=== PATIENT | female | born 1980 | race Caucasian/White ===

== ENCOUNTER 2017-07-06 18:56 | Observation (INO) | payer BC, OTHER ==
[~2017-07-06] VITALS: Ht 160 cm; Wt 53.5 kg
[~2017-07-06 18:56] MED LIST: CEPH250C37 PO; LEVO500T83 PO; METH20TA33 PO; METHY10 PO; NITR-105 PO; SULF-198 PO; [UNRECOGNIZED DRUG - OTHER]
--- NOTE | 2017-07-06 19:00 | ER Report ---
History and Physical Time Seen By MD: 19:32 HPI/ROS CHIEF COMPLAINT: Left lower quadrant pain HISTORY OF PRESENT ILLNESS: 36-year-old female, G2, P1 presents ambulatory to the ER complaining of left lower quadrant abdominal pain since 5 PM this evening. She thinks she may have an ectopic . She has an IUD. She did 2 home tests that were positive. She has intermittent spotting with her IUD. She thinks that she is approximate 5 weeks and since her last menstrual period. She notes that she denied some urinary tract symptoms since 5 days ago. She notes no fever or chills. She states that he has recurrent urinary tract infections and has no symptoms on previous occasions. She notes some mild nausea but no vomiting or diarrhea. She notes no vaginal discharge or bleeding at this time. REVIEW OF SYSTEMS: Respiratory: No cough, no dyspnea. Cardiovascular: No chest pain, no palpitations. Gastrointestinal: As above Musculoskeletal: No back pain. Allergies: Coded Allergies: celecoxib (Verified Allergy, Mild, HIVES, 07/06/17) Home Meds Reported Medications Amphet Asp/Amphet/D-Amphet (ADDERALL 10 MG TABLET) 10 Mg Tablet, 10 MG PO DAILY 07/06/17 Amphet Asp/Amphet/D-Amphet (ADDERALL 20 MG TABLET) 20 Mg Tablet, 25 MG PO DAILY 07/06/17 Discontinued Reported Medications [paraguard] No Conflict Check 11/11/14 Methylphenidate Hcl (RITALIN) 10 Mg Tab, 10 MG PO QNOON, TAB 11/09/14 Methylphenidate Hcl (RITALIN) 20 Mg Tablet, 20 MG PO QAM 11/09/14 Discontinued Scripts Levofloxacin 500 Mg Tab (LEVOFLOXACIN 500 MG TAB) 500 Mg Tablet, 1 TAB PO QDAY, #3 TAB 0 Refills Prov:GISELLE HOLBROOK MD 11/28/14 Past Medical/Surgical History Patient has a past medical history of exercise-induced asthma, GERD, . Patient has a surgical history of dental surgery, MRSA abscess excision. Reviewed Nurses Notes: Yes Old Medical Records Reviewed: Yes Hx Smoking: No Smoking Status: Former Smoker Exposure to Second Hand Smoke?: No Hx Substance Use Disorder: No Hx Alcohol Use: No Constitutional Vital Sign - Last 24 Hours 07/06/17 07/06/17 07/06/17 07/06/17 19:28 19:30 19:31 19:45 Temp 98.1 Pulse 84 82 86 Resp 16 B/P (MAP) 150/102 (118) 150/102 Pulse Ox 100 99 99 O2 Delivery Room Air 07/06/17 07/06/17 07/06/17 07/06/17 20:00 20:15 20:30 20:45 Pulse 86 80 78 80 B/P (MAP) 116/98 (104) 131/95 (107) Pulse Ox 93 100 99 99 Physical Exam General Appearance: The patient is alert, has no immediate need for airway protection and no current signs of toxicity. Vital signs stable, afebrile, mild distress HEENT: Pupils equal and round no injection. Oropharynx without redness or exudate, mucous membranes are moist Respiratory: Chest is non tender, lungs are clear to auscultation. Cardiac: regular rate and rhythm Gastrointestinal: [Abdomen is soft. Mild left lower quadrant tenderness, no rebound or guarding no masses, bowel sounds normal.] Musculoskeletal: Neck: Neck is supple and non tender. No lymphadenopathy Extremities have full range of motion and are non tender. Skin: No rashes or lesions. DIFFERENTIAL DIAGNOSIS: After history and physical exam differential diagnosis was considered for vaginal bleeding including but not limited to ectopic , menses, miscarriage, and dysfunctional uterine bleeding. Medical Decision Making Data Points Result Diagram: 07/06/17193307/06/171933 Laboratory Hematology Test 07/06/17 19:25 07/06/17 19:34 Urine Color Straw Urine Clarity Clear Urine pH 6.0 pH (4.8-9.5) Urine Specific [place] 1.004 Urine Protein Negative mg/dL (NEGATIVE) Urine Glucose (UA) Negative mg/dL (NEGATIVE) Urine Ketones Negative mg/dL (NEGATIVE) Urine Blood Small (NEGATIVE) Urine Nitrite Negative (NEGATIVE) Urine Bilirubin Negative (NEGATIVE) Urine Urobilinogen Negative mg/dL (0.2-1.9) Urine Leukocyte Esterase Negative (NEGATIVE) Urine RBC None /HPF (0-2/HPF) Urine WBC 1 /HPF (0-5/HPF) Urine Squamous Epithelial Cells Few /LPF (</=FEW) Urine Bacteria Negative /HPF (NONE-FEW) Urine Mucus None /HPF (NONE-FEW) Red Blood Count 5.10 M/uL (4.17-5.56) Mean Corpuscular Volume 87.3 fL (80.0-96.0) Mean Corpuscular Hemoglobin 29.5 pg (26.0-33.0) Mean Corpuscular Hemoglobin Concent 33.8 g/dL (32.0-36.0) Red Cell Distribution Width 13.2 % (11.5-14.5) Mean Platelet Volume 6.8 fL (7.2-11.1) Neutrophils (%) (Auto) 65.3 % (39.4-72.5) Lymphocytes (%) (Auto) 27.9 % (17.6-49.6) Monocytes (%) (Auto) 5.8 % (4.1-12.4) Eosinophils (%) (Auto) 0.3 % (0.4-6.7) Basophils (%) (Auto) 0.7 % (0.3-1.4) Nucleated RBC Relative Count (auto) 0.1 /100WBC Neutrophils # (Auto) 5.0 K/uL (2.0-7.4) Lymphocytes # (Auto) 2.1 K/uL (1.3-3.6) Monocytes # (Auto) 0.4 K/uL (0.3-1.0) Eosinophils # (Auto) 0.0 K/uL (0.0-0.5) Basophils # (Auto) 0.1 K/uL (0.0-0.1) Nucleated RBC Absolute Count (auto) 0.01 K/uL Prothrombin Time 13.3 seconds (12.0-14.4) Prothromb Time International Ratio 1.01 Activated Partial Thromboplast Time 26 seconds (23-35) Sodium Level 137 mmol/L (137-145) Potassium Level 3.2 mmol/L (3.5-5.0) Chloride Level 99 mmol/L (98-107) Carbon Dioxide Level 25 mmol/L (22-31) Blood Urea Nitrogen 7 mg/dl (7-18) Creatinine 0.60 mg/dl (0.52-1.04) Glomerular Filtration Rate Calc > 60.0 Random Glucose 70 mg/dl (75-110) Calcium Level 9.1 mg/dl (8.4-10.2) Total Bilirubin 0.6 mg/dl (0.2-1.3) Aspartate Amino Transf (AST/SGOT) 25 U/L (0-35) Alanine Aminotransferase (ALT/SGPT) 36 U/L (0-56) Alkaline Phosphatase 46 U/L (0-126) Total Protein 8.6 gm/dl (6.3-8.2) Albumin 4.8 g/dl (3.5-5.0) Human Chorionic Gonadotropin, Qual Positive (NEGATIVE) Human Chorionic Gonadotropin, Quant 1508 mIU/ml Chemistry Test 07/06/17 19:25 07/06/17 19:34 Urine Color Straw Urine Clarity Clear Urine pH 6.0 pH (4.8-9.5) Urine Specific [place] 1.004 Urine Protein Negative mg/dL (NEGATIVE) Urine Glucose (UA) Negative mg/dL (NEGATIVE) Urine Ketones Negative mg/dL (NEGATIVE) Urine Blood Small (NEGATIVE) Urine Nitrite Negative (NEGATIVE) Urine Bilirubin Negative (NEGATIVE) Urine Urobilinogen Negative mg/dL (0.2-1.9) Urine Leukocyte Esterase Negative (NEGATIVE) Urine RBC None /HPF (0-2/HPF) Urine WBC 1 /HPF (0-5/HPF) Urine Squamous Epithelial Cells Few /LPF (</=FEW) Urine Bacteria Negative /HPF (NONE-FEW) Urine Mucus None /HPF (NONE-FEW) White Blood Count 7.7 k/uL (4.5-11.0) Red Blood Count 5.10 M/uL (4.17-5.56) Hemoglobin 15.0 g/dL (12.0-16.0) Hematocrit 44.5 % (34.0-47.0) Mean Corpuscular Volume 87.3 fL (80.0-96.0) Mean Corpuscular Hemoglobin 29.5 pg (26.0-33.0) Mean Corpuscular Hemoglobin Concent 33.8 g/dL (32.0-36.0) Red Cell Distribution Width 13.2 % (11.5-14.5) Platelet Count 354 K/uL (150-450) Mean Platelet Volume 6.8 fL (7.2-11.1) Neutrophils (%) (Auto) 65.3 % (39.4-72.5) Lymphocytes (%) (Auto) 27.9 % (17.6-49.6) Monocytes (%) (Auto) 5.8 % (4.1-12.4) Eosinophils (%) (Auto) 0.3 % (0.4-6.7) Basophils (%) (Auto) 0.7 % (0.3-1.4) Nucleated RBC Relative Count (auto) 0.1 /100WBC Neutrophils # (Auto) 5.0 K/uL (2.0-7.4) Lymphocytes # (Auto) 2.1 K/uL (1.3-3.6) Monocytes # (Auto) 0.4 K/uL (0.3-1.0) Eosinophils # (Auto) 0.0 K/uL (0.0-0.5) Basophils # (Auto) 0.1 K/uL (0.0-0.1) Nucleated RBC Absolute Count (auto) 0.01 K/uL Prothrombin Time 13.3 seconds (12.0-14.4) Prothromb Time International Ratio 1.01 Activated Partial Thromboplast Time 26 seconds (23-35) Glomerular Filtration Rate Calc > 60.0 Calcium Level 9.1 mg/dl (8.4-10.2) Total Bilirubin 0.6 mg/dl (0.2-1.3) Aspartate Amino Transf (AST/SGOT) 25 U/L (0-35) Alanine Aminotransferase (ALT/SGPT) 36 U/L (0-56) Alkaline Phosphatase 46 U/L (0-126) Total Protein 8.6 gm/dl (6.3-8.2) Albumin 4.8 g/dl (3.5-5.0) Human Chorionic Gonadotropin, Qual Positive (NEGATIVE) Human Chorionic Gonadotropin, Quant 1508 mIU/ml Coagulation Test 07/06/17 19:34 Prothrombin Time 13.3 seconds Prothromb Time International Ratio 1.01 Activated Partial Thromboplast Time 26 seconds Urinalysis Test 07/06/17 19:25 Urine Color Straw Urine Clarity Clear Urine pH 6.0 pH (4.8-9.5) Urine Specific [place] 1.004 Urine Protein Negative mg/dL (NEGATIVE) Urine Glucose (UA) Negative mg/dL (NEGATIVE) Urine Ketones Negative mg/dL (NEGATIVE) Urine Blood Small (NEGATIVE) Urine Nitrite Negative (NEGATIVE) Urine Bilirubin Negative (NEGATIVE) Urine Urobilinogen Negative mg/dL (0.2-1.9) Urine Leukocyte Esterase Negative (NEGATIVE) Urine RBC None /HPF (0-2/HPF) Urine WBC 1 /HPF (0-5/HPF) Urine Squamous Epithelial Cells Few /LPF (</=FEW) Urine Bacteria Negative /HPF (NONE-FEW) Urine Mucus None /HPF (NONE-FEW) EKG/Imaging Imaging Results: Ultrasound of the transvaginal OB ultrasound was obtained. The results of the study are Examination: 1st trimester obstetric ultrasound Comparison: None Available History: Vaginal bleeding. Left pelvic pain. LMP: 05/29/2017 Gestational age based on LMP: 5 weeks 3 days DEANGELO based on LMP: 03/05/2018 Findings: Standard endovaginal obstetric ultrasound with color flow and spectral analysis. Uterus: Intrauterine device in the lower uterine segment and cervix. Homogeneously thickened 2.7 cm endometrium with no intrauterine gestational sac or fluid collection identified.. Left adnexa: 2.9 x 1.8 x 2.1 cm morphologically normal ovary. 2.9 x 1.1 x 1.7 cm complex collection adjacent to the left ovary with a 9 x 3 x 3 mm fluid collection centrally. On Doppler interrogation there is surrounding increased vascularity. Right adnexa: 3.0 x 2.3 x 2.9 cm morphologically normal right ovary. Normal waveforms on Doppler interrogation. Small amount of fluid in the dependent pelvis containing a small amount of debris. Urinary bladder is unremarkable. IMPRESSION: 1. Left adnexa 2.9 x 1.1 x 1.7 cm complex collection adjacent to the left ovary is suspicious for an ectopic . BIOMEDICAL MANAGER consultation is required. 2. Small volume of pelvic fluid containing a small amount of debris could potentially be hemorrhage. 3. No intrauterine gestational sac. 4. Intrauterine device within the lower uterine segment and cervix. The study was read by the radiologist. I viewed the images myself on the PACS system. ED Course/Re-evaluation Clinical Indication for ER IV: IV Access ED Course Patient was admitted to an examination room. H&P was done. The differential diagnoses was considered. On clinical examination. Patient has sudden onset of left lower quadrant pain. At 5 PM. She was concerned she might have an ectopic . She actually did 2 home tests that were both positive. Patient has a peripheral IV established on arrival. Her vital signs are stable. Serum test is positive. Quantitative returns at 1500. Transvaginal ultrasound is performed which shows a adnexal mass on the left ovary with some fluid around it suggestive of a ectopic with hemorrhage. BIOMEDICAL MANAGER was consult at. 07/06/2017 8:40:12 pm case discussed with Dr. Souza BIOMEDICAL MANAGER on-call, who will come see the patient. Decision to Disposition Date: Jul 06, 2017 Decision to Disposition Time: 20:40 Depart Departure Latest Vital Signs Vital Signs Date Time Temp Pulse Resp B/P (MAP) Pulse Ox O2 Delivery O2 Flow Rate FiO2 07/06/17 20:45 80 99 07/06/17 20:30 131/95 (107) 07/06/17 19:31 98.1 16 Room Air Impression: Primary Impression: Ectopic Additional Impression: IUD (intrauterine device) in place Condition: Improved Disposition: ADMIT FROM ER TO OR Referrals: VIOLET SOUAZ MD (PCP) Problem Qualifiers Primary Impression: Ectopic Location of ectopic : ovarian Intrauterine status: without intrauterine Laterality: left Qualified Codes: O00.202 - Left ovarian without intrauterine FRANCO RANDLE DO Jul 06, 2017 19:00
[2017-07-06] MEDS ORDERED: DEXT10TA9 PO (19:31)
[2017-07-06] MEDS ORDERED: AMPH20TA18 PO (19:31)
[2017-07-06 19:44] LABS: PLATELET COUNT, AUTOMATED 354 K/uL (150-450)
[2017-07-06 19:52] LABS: INR 1.01
--- NOTE | 2017-07-06 20:37 | RADIOLOGY IMAGING REPORT ---
FACILITY: [facility] [place] PATIENT NAME: Ceci Arevalo : 1980 MR: [id number] V: [id number] EXAM DATE: ORDERING PHYSICIAN: FRANCO RANDLE TECHNOLOGIST: Location: [facility] Patient: Ceci Arevalo : 1980 Visit/Account:[id number] Date of Sevice: 07/06/2017 Examination: 1st trimester obstetric ultrasound Comparison: None Available History: Vaginal bleeding. Left pelvic pain. LMP: 05/29/2017 Gestational age based on LMP: 5 weeks 3 days DEANGELO based on LMP: 03/05/2018 Findings: Standard endovaginal obstetric ultrasound with color flow and spectral analysis. Uterus: Intrauterine device in the lower uterine segment and cervix. Homogeneously thickened 2.7 cm e ndometrium with no intrauterine gestational sac or fluid collection identified.. Left adnexa: 2.9 x 1.8 x 2.1 cm morphologically normal ovary. 2.9 x 1.1 x 1.7 cm complex collection a djacent to the left ovary with a 9 x 3 x 3 mm fluid collection centrally. On Doppler interrogation th ere is surrounding increased vascularity. Right adnexa: 3.0 x 2.3 x 2.9 cm morphologically normal right ovary. Normal waveforms on Doppler inte rrogation. Small amount of fluid in the dependent pelvis containing a small amount of debris. Urinary bladder is unremarkable. IMPRESSION: 1. Left adnexa 2.9 x 1.1 x 1.7 cm complex collection adjacent to the left ovary is suspicious for an ectopic . TEST CAR DRIVER consultation is required. 2. Small volume of pelvic fluid containing a small amount of debris could potentially be hemorrhage. 3. No intrauterine gestational sac. 4. Intrauterine device within the lower uterine segment and cervix. Results were discussed with FRANCO RANDLE at 07/06/2017 8:31 PM. Report Dictated By: Jacob Bautista MD at 07/06/2017 8:23 PM Report E-Signed By: Jacob Bautista MD at 07/06/2017 8:33 PM [id number]
[2017-07-06] MEDS ORDERED: NORMOSOL R SOLN(*) 1000 ML BAG 1,000 ML IV ONE (20:45)
[2017-07-06] MEDS ORDERED: ROPIVACAINE 0.2% 20 ML VIAL ONE (21:11)
[2017-07-06] MEDS ORDERED: METOCLOPRAMIDE 10 MG/2 ML SDV ONE (21:27)
[2017-07-06] MEDS ORDERED: LIDOCAINE MPF 1% 5 ML VIAL ONE (21:27)
[2017-07-06] MEDS ORDERED: DEXAMETHASONE SOD 4 MG/ML VIAL ONE (21:27)
[2017-07-06] MEDS ORDERED: ONDANSETRON 4 MG/2 ML VIAL ONE (21:27)
[2017-07-06] MEDS ORDERED: PROPOFOL EMUL(*) 10MG/ML 20 ML 20 ML ONE (21:27)
[2017-07-06] MEDS ORDERED: fentaNYL CITR 100 MCG/2 ML AMP ONE ×2 (21:29→23:12)
[2017-07-06] MEDS ORDERED: NEOSTIG METHYLSUL 10MG/10ML VL ONE (21:31)
--- NOTE | 2017-07-06 21:31 | History & Physical ---
History of Present Illness Age of Patient: 36 : 2 Para or TPAL: 1 Estimated Gestational Age: 5 Chief Complaint ectopic History of Present Illness presents for LLQ abdominal pain that has proved to be c/w left ectopic . Quant 1500, u/s shows 2-3 cm complex left adnexal cystic mass with hypervascularity and small amount of free fluid c/w hemorrhage. History Obstetrical History: prior vagina delivery Past Medical History: exercise induced asthma, GERD, dental procedure Allergies: Coded Allergies: celecoxib (Verified Allergy, Mild, HIVES, 07/06/17) Family History: Anxiety disorder MOTHER FH: bipolar disorder Siblings FH: cancer MOTHER FH: epilepsy MOTHER Med Rec Home Meds Reported Medications Amphet Asp/Amphet/D-Amphet (ADDERALL 10 MG TABLET) 10 Mg Tablet, 10 MG PO DAILY 07/06/17 Amphet Asp/Amphet/D-Amphet (ADDERALL 20 MG TABLET) 20 Mg Tablet, 25 MG PO DAILY 07/06/17 Discontinued Reported Medications [paraguard] No Conflict Check 11/11/14 Methylphenidate Hcl (RITALIN) 10 Mg Tab, 10 MG PO QNOON, TAB 11/09/14 Methylphenidate Hcl (RITALIN) 20 Mg Tablet, 20 MG PO QAM 11/09/14 Discontinued Scripts Levofloxacin 500 Mg Tab (LEVOFLOXACIN 500 MG TAB) 500 Mg Tablet, 1 TAB PO QDAY, #3 TAB 0 Refills Prov:GISELLE HOLBROOK MD 11/28/14 Review of Systems All Systems Reviewed/Normal: Yes, Except as Noted Exam General Exam Vital Signs Vital Signs Date Time Temp Pulse Resp B/P (MAP) Pulse Ox O2 Delivery O2 Flow Rate FiO2 07/06/17 19:31 98.1 82 16 150/102 99 Room Air General Apperance: Alert/Awake/No Acute Distress Neuro: No Gross deficits ENT: Normal Cardiovascular: Regular Rate and Rhythm Respiratory: No Respiratory Distress Abdomen: Other (tender LLQ) Musculoskeletal: No Weakness/Pain Extremities: No Cyanosis,Clubbing or Edema Integumentary: Skin Intact without Lesions or Rash Psychological: Alert & Oriented X3, Appropriate Mood & Affect Medical Decision Making Data Points Result Diagram: 07/06/17193307/06/171933 VTE Prophylasis: Adult Deep Vein Thrombosis/Pulmonary: No Pharmacological Contraindicati: Pt at Low Risk for VTE Mechanical Contraindications: Pt at Low Risk for VTE Assessment and Plan Problems: (1) Ruptured left tubal ectopic causing hemoperitoneum Assessment & Plan: Reviewed and consented for laparoscopic removal. Questions answered. VIOLET SOUZA MD Jul 06, 2017 21:31
[2017-07-06] MEDS ORDERED: DLR(*) 1000 ML BAG 1,000 ML IV PRN (22:48)
[2017-07-06] MEDS ORDERED: ACETAMINOPHEN 325 MG TAB PO PRN (22:50)
[2017-07-06] MEDS ORDERED: ONDANSETRON 4 MG/2 ML VIAL IV PRN (22:50)
[2017-07-06] MEDS ORDERED: PROMETHAZINE 25 MG/ML 1 ML AMP IVP PRN (22:50)
--- NOTE | 2017-07-06 22:54 | Post Operative Note ---
Operative Note - CHIEF DISPATCHER Operative Day Date: Jul 06, 2017 Time: 22:53 Physicians Surgeon: Xochitl Anesthesia: GETA Diagnosis Pre-Op Diagnosis: ectopic Post-Op Diagnosis: same Procedure Findings: left tubal fimbria ectopic Procedure(s): L-scope removal of ectopic Specimen Removed:(Maybe N/A): POC Complications: none Fluids Fluids: IV crystalloid Estimated Blood Loss: 100 ml Dictated Date OP Note Dictated: Jul 06, 2017 Time OP Note Dictated: 22:54 Copies to: VIOLET SOUZA MD, TRAVIS MD Jul 06, 2017 22:54
[2017-07-07] VITALS (11 sets, daily range): BP systolic 93–120; BP diastolic 56–82; Ht 160 cm; Wt 53.5 kg
--- NOTE | 2017-07-07 05:08 | [facility] H&P ---
DATE OF ADMISSION: July 06, 2017 CHIEF COMPLAINT Ectopic . HISTORY OF PRESENT ILLNESS This is a 36-year-old, 2, para 1, who presented to the emergency room with report of left lower quadrant abdominal pain since around 5 p.m. tonight. She had checked two positive tests at home and has a ParaGard IUD in place. She knew this was a risk for ectopic , and presented to the emergency room. She reported the pain had been progressively increasing around 5 p.m., and was at about a level of a 7 or 8 compared to childbirth. Upon arrival, she was stable and went through workup in the emergency room without treatment of her pain. She did have a pelvic ultrasound performed in the emergency room, revealing a 2.9 x 1.1 x 1.7 cm complex collection adjacent to the left ovary with a 9.0 x 3.0 x 3.0 mm fluid collection centrally and Doppler suggesting increasing vascularity around this complex cystic area. There was also a small amount of fluid mixed with debris that was suspicious for hemorrhage, and therefore ectopic was high on the list. She had a quantitative HCG of 1500. She reports having had some vaginal spotting, but otherwise no vaginal bleeding. PAST MEDICAL HISTORY Significant for exercise-induced asthma and gastroesophageal reflux disease. PAST SURGICAL HISTORY She has a history of a prior dental surgery and an MRSA abscess excision. ALLERGIES CELEBREX. CURRENT MEDICATIONS Adderall 30 mg daily. REVIEW OF SYSTEMS As per the HPI, otherwise negative. SOCIAL HISTORY She is , former smoker. PHYSICAL EXAMINATION VITAL SIGNS: Temperature 98.1, pulse 82, respirations 16, blood pressure 150/ 102. GENERAL: Healthy appearing white female, alert and oriented x 3 in no acute distress. HEENT: Normal. CHEST: Nontender. Lungs clear. HEART: Regular in rhythm. ABDOMEN: Soft, nondistended, mildly tender to light palpation in the left lower quadrant, referred pain from the right lower quadrant into the left on deeper palpation. EXTREMITIES: No cyanosis, clubbing or edema. ASSESSMENT Left ectopic . PLAN I reviewed with the patient and her the available options, including medical management with methotrexate versus surgical management. Considering the small amount of fluid that is in her pelvis that is consistent with hemorrhage, I have advised towards surgical treatment, as it is likely that medical will fail. We reviewed the potential surgical procedure options including salpingostomy versus salpingectomy, and instructed them that decision will be made at the time of surgery for which is most appropriate for her situation. She is in agreement and consents to continue with treatment as discussed. Plan is laparoscopic removal of ectopic . EBONY
--- NOTE | 2017-07-07 07:34 | OB/GYN Progress Note ---
OB Subjective Progress Notes Subjective Doing well. Pain controlled and a few episodes of more significant pain. Ambulating and tolerating activity. GI: NEG Nausea : Voiding Well Pain: Mild OB Objective Physical Exam Vital Signs Date Time Temp Pulse Resp B/P (MAP) Pulse Ox O2 Delivery O2 Flow Rate FiO2 07/07/17 04:41 98.0 72 16 109/79 (89) Room Air 07/07/17 04:00 94 Intake and Output 07/08/17 07:00 Intake Total 700 ml Balance 700 ml Intake Oral 700 ml General Appearance: Alert/Awake/No Acute Distress Neurological: No Gross deficits Cardiovascular: Normal Rhythm & Peripheral Pulses, Regular Rate and Rhythm Respiratory: No Respiratory Distress, Clear to Auscultation Abdomen: Soft, Non-Tender, Non-Distended, Other (LLQ more tender to palpate) Extremities: No Cyanosis,Clubbing or Edema Integumentary: Skin Intact without Lesions or Rash Psychological: Alert & Oriented X3, Appropriate Mood & Affect Result Diagram: 07/06/17193307/06/171933 Assessment and Plan Problems: (1) Ruptured left tubal ectopic causing hemoperitoneum Assessment & Plan: s/p laparoscopic removal Awaiting for quant HCG today. Home later. Return to office in 1 week for repeat lab. Precautions given. VIOLET SOUZA MD Jul 07, 2017 07:34
[2017-07-07] MEDS ORDERED: PER PO (07:36)
--- NOTE | 2017-07-07 07:38 | Short(Outpt) Discharge Summary ---
Discharge Summary Reason for Hosp/Final Diag: (1) Ruptured left tubal ectopic causing hemoperitoneum Hospital Course & Plan: s/p laparoscopic removal Awaiting for quant HCG today. Home later. Return to office in 1 week for repeat lab. Precautions given. Departure Discharge to: Home, Self Care Discharge Instructions Home Meds Active Scripts Oxycodone/Acetaminophen (OXYCODONE/ACETAMINOPHEN 5MG/325 MG) 5 Mg/325 Mg Tab, 1- 2 TAB PO Q4H Y for PAIN, #20 TAB 0 Refills Prov:EZIO SOUZA MD 07/07/17 Reported Medications Amphet Asp/Amphet/D-Amphet (ADDERALL 10 MG TABLET) 10 Mg Tablet, 10 MG PO DAILY 07/06/17 Amphet Asp/Amphet/D-Amphet (ADDERALL 20 MG TABLET) 20 Mg Tablet, 25 MG PO DAILY 07/06/17 Discontinued Reported Medications [paraguard] No Conflict Check 11/11/14 Methylphenidate Hcl (RITALIN) 10 Mg Tab, 10 MG PO QNOON, TAB 11/09/14 Methylphenidate Hcl (RITALIN) 20 Mg Tablet, 20 MG PO QAM 11/09/14 Discontinued Scripts Levofloxacin 500 Mg Tab (LEVOFLOXACIN 500 MG TAB) 500 Mg Tablet, 1 TAB PO QDAY, #3 TAB 0 Refills Prov:GISELLE HOLBROOK MD 11/28/14 Follow up Referrals: [facility] [address] SQL DEVELOPER - In One Week @ [facility] with Ezio Souza Md Diet: Regular Activity: As Tolerated Copies to: EZIO SOUZA MD, TRAVIS MD Jul 07, 2017 07:38
[2017-07-07 07:47] LABS: PLATELET COUNT, AUTOMATED 314 K/uL (150-450)
--- NOTE | 2017-07-07 23:07 | OPERATIVE REPORT 1 ---
EVENT DATE: July 06, 2017 SURGEON: Ezio Leung MD ANESTHESIOLOGIST: Hortencia Amin MD ANESTHESIA: General endotracheal. PREOPERATIVE DIAGNOSES 1. Ruptured ectopic with hemoperitoneum. 2. Mechanically expelled intrauterine device. POSTOPERATIVE DIAGNOSES 1. Left tubal fimbria ectopic rupture with hemoperitoneum. 2. Mechanically expelled intrauterine device. PROCEDURES PERFORMED 1. Laparoscopic removal of ectopic . 2. Intrauterine device removal. ESTIMATED BLOOD LOSS 100 mL FLUIDS IV crystalloid. URINE OUTPUT Drained prior to the procedure. FINDINGS Upon inspecting the pelvis, there was immediately noted to be hemoperitoneum and a gravid uterus. The uterus was elevated, and the left tube and ovary were exposed. There was an apparent ectopic on the fimbrial portion of this left tube, but no active bleeding. There appeared to be clot enveloping this tissue. The distal end of this tube was slightly dilated, but otherwise was pink and healthy. The right tube and ovary were normal in all respects. PROCEDURE IN DETAIL The patient was brought to the operating room with a working IV and placed in the dorsal supine position. She was placed under general endotracheal anesthesia and then moved to the dorsal lithotomy position. She was prepped and draped in the usual sterile fashion. A weighted speculum was placed in the vagina. The cervix was visualized and grasped on the 12 o'clock position with a single-toothed tenaculum, and the IUD strings were visible at the external os. Using a grasper, the external os was slightly opened to visualize the internal portion of the internal os, and the distal end of the IUD was present approximately 5 mm into the cervix. It was, therefore, grasped and manually removed due to its cervical location. This had been previously noted on the ultrasound. The cervix was then dilated a size 6 Hegar dilator, and a size 10 TRINI uterine manipulator was selected and assembled. This was selected due to a sounding depth of 10 cm, anteverted. Once the cervix was dilated, the TRINI was passed through the cervix into the uterus. The balloon was inflated and secured, and all instruments were then removed. The legs were brought back to the supine position, and gloves were changed. The umbilicus was infiltrated with 0.2% Naropin, and a 5 mm stab incision was made. The anterior abdominal wall was elevated while a Veress needle was passed through this incision into the abdomen. A pneumoperitoneum was created to an intra-abdominal pressure of 20 mmHg. This was reduced to 15 mmHg once all ports had been placed. The Veress needle was then removed. A 5 mm bladeless trocar was passed through this incision while stabilizing the anterior abdominal wall and under direct visualization with the scope. Once abdominal entry had been obtained, the abdomen and pelvis were surveyed, inspecting for trocar injuries. None were found. Therefore, an additional 5 mm port was placed in the left lower quadrant under a similar technique and via direct visualization. Using the grasper, the left fallopian tube was grasped and inspected. The above findings were noted. There was clot and apparent ectopic tissue present at the fimbrial portion of this tube. There was no extreme dilation or bluish discoloration to the length of the fallopian tube. The ampullary portion did appear to be slightly dilated, probably from affecting that tube, but otherwise appeared healthy and viable. An additional 10 mm size was placed suprapubically, and through this port, a grasper was passed, and it was used to grasp the ectopic tissue from the fimbrial portion of that tube. It was put on stretch and was easily released. There was no residual bleeding from that tube. An Endo Pouch was passed through the suprapubic port, and the grasper was used to place the tissue in that bag. It was removed through the suprapubic port. The left fallopian tube was then scrutinized by inspecting it along its length. As mentioned before, there was no visible dilation to the length of the tube, and it was pink throughout its entirety. The tube was laid against the pelvic sidewall, and it was milked along its length to verify that there were no further contents within the tube. Nothing was expelled from the distal end, and there was no bleeding. One final test, the contents of the bag were floated in saline, and I did observe chorionic villi floating within the clot and the tissue mass. Therefore, it was sent to Pathology for further analysis. The pelvis was then copiously irrigated with saline and suctioned dry. There was no visible bleeding anywhere. No further incision or damage was done to the left fallopian tube. The procedure was deemed complete at this point. The suprapubic port was closed with a suture closure device using a simple interrupted stitch of 0 Vicryl. Following this, all other instruments were removed, including the trocars after the pneumoperitoneum had been suctioned out. Skin incisions were repaired with 4-0 Monocryl simple subdermal and covered with Dermabond skin adhesive. The TRINI uterine manipulator was removed. All instruments were accounted for. Sponge, lap, needle, and instrument counts were all correct. [facility]
== END 2017-07-07 07:36 | disposition home or self-care (01) ==
LOC: ER 19:12 → OR 20:51 → PED 23:45
PROVIDERS: ADMIT Obstetrics & Gynecology; ATTEND Obstetrics & Gynecology
DX: O00.202 Left ovarian pregnancy without intrauterine pregnancy (principal); Z3A.01 Less than 8 weeks gestation of pregnancy
CPT/HCPCS: 36415; 59150; 76817; 81001; 84702; 84703; 85025; 85610; 85730; 86850; 86900; 86901; 88300; 88302; 96365; 99285; G0378; J1100; J2001; J2405; J2704; J2710; J2765; J2795; J3010; 82040; 82247; 82310; 82374; 82435; 82565; 82947; 84075; 84132; 84155; 84295; 84450; 84460; 84520

== ENCOUNTER 2018-01-24 14:20 | Emergency (ER) | payer OTHER ==
[2017-07-07 08:18] VITALS: Wt 53.5 kg
[~2018-01-24 14:20] MED LIST changes: +AMPH20TA18 PO; +DEXT10TA9 PO; +PER PO
--- NOTE | 2018-01-24 14:29 | ER Report ---
History and Physical Time Seen By MD: 14:30 HPI/ROS 37-year-old female who was treated for an ectopic in November 2017 presents to the emergency department with 2 out of 10 left sided pelvic pain and a positive home test. LMP December 22, 2017. By dates she is approximately 5 weeks and 1 day gestation. She denies any vaginal bleeding. She has no symptoms and feeling lightheaded or dizzy. She tried to make an appointment with Dr. Souza who operated on her for her ectopic , but his staff would not make her an appointment and told her to come to the emergency department instead. Again she states that her pain is not that severe , but she knows she is at increased risk for an ectopic and wanted to be reassured that she had an IUP. Remainder of the 14 system rev: Yes Allergies: Coded Allergies: celecoxib (Verified Allergy, Mild, HIVES, 01/24/18) Home Meds Reported Medications Amphet Asp/Amphet/D-Amphet (ADDERALL 10 MG TABLET) 10 Mg Tablet, 10 MG PO DAILY 07/06/17 Amphet Asp/Amphet/D-Amphet (ADDERALL 20 MG TABLET) 20 Mg Tablet, 25 MG PO DAILY 07/06/17 Discontinued Scripts Oxycodone/Acetaminophen (OXYCODONE/ACETAMINOPHEN 5MG/325 MG) 5 Mg/325 Mg Tab, 1- 2 TAB PO Q4H Y for PAIN, #20 TAB 0 Refills Prov:VIOLET SOUZA MD 07/07/17 Reviewed Nurses Notes: Yes Old Medical Records Reviewed: Yes Hx Smoking: No Smoking Status: Former Smoker Exposure to Second Hand Smoke?: No Hx Substance Use Disorder: No Hx Alcohol Use: No Constitutional Vital Sign - Last 24 Hours 01/24/18 01/24/18 01/24/18 01/24/18 14:40 14:42 14:50 15:00 Temp 99.1 Pulse 87 Resp 16 B/P (MAP) 129/86 (100) 129/86 116/82 (93) Pulse Ox 99 97 O2 Delivery Room Air 01/24/18 01/24/18 01/24/18 01/24/18 15:05 15:20 15:30 15:35 Pulse 88 86 84 B/P (MAP) 120/86 (97) Pulse Ox 97 96 96 01/24/18 01/24/18 16:00 16:05 Pulse 82 B/P (MAP) 108/82 (91) Pulse Ox 98 Physical Exam General Appearance: The patient is alert, has no immediate need for airway protection and no current signs of toxicity. Eyes: Pupils equal and round no injection. Respiratory: Chest is non tender, lungs are clear to auscultation. Cardiac: regular rate and rhythm Gastrointestinal: Abdomen is soft and non tender, no masses, bowel sounds normal. Skin: No rashes or lesions. DIFFERENTIAL DIAGNOSIS: After history and physical exam differential diagnosis was considered for 1st trimester , ectopic , ovarian cyst, torsion, UTI Medical Decision Making Data Points Result Diagram: 01/24/18 1452 01/24/18 1452 Laboratory Hematology Test 01/24/18 14:40 01/24/18 14:52 Urine Color Straw Urine Clarity Clear Urine pH 6.0 pH (4.8-9.5) Urine Specific [place] 1.010 Urine Protein Negative mg/dL (NEGATIVE) Urine Glucose (UA) Negative mg/dL (NEGATIVE) Urine Ketones Negative mg/dL (NEGATIVE) Urine Blood Negative (NEGATIVE) Urine Nitrite Negative (NEGATIVE) Urine Bilirubin Negative (NEGATIVE) Urine Urobilinogen Negative mg/dL (0.2-1.9) Urine Leukocyte Esterase Negative (NEGATIVE) Urine RBC None /HPF (0-2/HPF) Urine WBC 1 /HPF (0-5/HPF) Urine Squamous Epithelial Cells Many /LPF (</=FEW) Urine Bacteria Negative /HPF (NONE-FEW) Urine Mucus Few /HPF (NONE-FEW) Red Blood Count 4.90 M/uL (4.17-5.56) Mean Corpuscular Volume 85.0 fL (80.0-96.0) Mean Corpuscular Hemoglobin 29.0 pg (26.0-33.0) Mean Corpuscular Hemoglobin Concent 34.1 g/dL (32.0-36.0) Red Cell Distribution Width 14.5 % (11.5-14.5) Mean Platelet Volume 7.0 fL (7.2-11.1) Neutrophils (%) (Auto) 58.6 % (39.4-72.5) Lymphocytes (%) (Auto) 32.3 % (17.6-49.6) Monocytes (%) (Auto) 7.8 % (4.1-12.4) Eosinophils (%) (Auto) 0.6 % (0.4-6.7) Basophils (%) (Auto) 0.7 % (0.3-1.4) Nucleated RBC Relative Count (auto) 0.1 /100WBC Neutrophils # (Auto) 3.3 K/uL (2.0-7.4) Lymphocytes # (Auto) 1.8 K/uL (1.3-3.6) Monocytes # (Auto) 0.4 K/uL (0.3-1.0) Eosinophils # (Auto) 0.0 K/uL (0.0-0.5) Basophils # (Auto) 0.0 K/uL (0.0-0.1) Nucleated RBC Absolute Count (auto) 0.00 K/uL Sodium Level 136 mmol/L (137-145) Potassium Level 4.0 mmol/L (3.5-5.0) Chloride Level 102 mmol/L (98-107) Carbon Dioxide Level 26 mmol/L (22-31) Blood Urea Nitrogen 13 mg/dl (7-18) Creatinine 0.60 mg/dl (0.52-1.04) Glomerular Filtration Rate Calc > 60.0 Random Glucose 88 mg/dl (75-110) Calcium Level 9.0 mg/dl (8.4-10.2) Human Chorionic Gonadotropin, Quant 5742 mIU/ml Chemistry Test 01/24/18 14:40 01/24/18 14:52 Urine Color Straw Urine Clarity Clear Urine pH 6.0 pH (4.8-9.5) Urine Specific [place] 1.010 Urine Protein Negative mg/dL (NEGATIVE) Urine Glucose (UA) Negative mg/dL (NEGATIVE) Urine Ketones Negative mg/dL (NEGATIVE) Urine Blood Negative (NEGATIVE) Urine Nitrite Negative (NEGATIVE) Urine Bilirubin Negative (NEGATIVE) Urine Urobilinogen Negative mg/dL (0.2-1.9) Urine Leukocyte Esterase Negative (NEGATIVE) Urine RBC None /HPF (0-2/HPF) Urine WBC 1 /HPF (0-5/HPF) Urine Squamous Epithelial Cells Many /LPF (</=FEW) Urine Bacteria Negative /HPF (NONE-FEW) Urine Mucus Few /HPF (NONE-FEW) White Blood Count 5.6 k/uL (4.5-11.0) Red Blood Count 4.90 M/uL (4.17-5.56) Hemoglobin 14.2 g/dL (12.0-16.0) Hematocrit 41.6 % (34.0-47.0) Mean Corpuscular Volume 85.0 fL (80.0-96.0) Mean Corpuscular Hemoglobin 29.0 pg (26.0-33.0) Mean Corpuscular Hemoglobin Concent 34.1 g/dL (32.0-36.0) Red Cell Distribution Width 14.5 % (11.5-14.5) Platelet Count 283 K/uL (150-450) Mean Platelet Volume 7.0 fL (7.2-11.1) Neutrophils (%) (Auto) 58.6 % (39.4-72.5) Lymphocytes (%) (Auto) 32.3 % (17.6-49.6) Monocytes (%) (Auto) 7.8 % (4.1-12.4) Eosinophils (%) (Auto) 0.6 % (0.4-6.7) Basophils (%) (Auto) 0.7 % (0.3-1.4) Nucleated RBC Relative Count (auto) 0.1 /100WBC Neutrophils # (Auto) 3.3 K/uL (2.0-7.4) Lymphocytes # (Auto) 1.8 K/uL (1.3-3.6) Monocytes # (Auto) 0.4 K/uL (0.3-1.0) Eosinophils # (Auto) 0.0 K/uL (0.0-0.5) Basophils # (Auto) 0.0 K/uL (0.0-0.1) Nucleated RBC Absolute Count (auto) 0.00 K/uL Glomerular Filtration Rate Calc > 60.0 Calcium Level 9.0 mg/dl (8.4-10.2) Human Chorionic Gonadotropin, Quant 5742 mIU/ml Urinalysis Test 01/24/18 14:40 Urine Color Straw Urine Clarity Clear Urine pH 6.0 pH (4.8-9.5) Urine Specific [place] 1.010 Urine Protein Negative mg/dL (NEGATIVE) Urine Glucose (UA) Negative mg/dL (NEGATIVE) Urine Ketones Negative mg/dL (NEGATIVE) Urine Blood Negative (NEGATIVE) Urine Nitrite Negative (NEGATIVE) Urine Bilirubin Negative (NEGATIVE) Urine Urobilinogen Negative mg/dL (0.2-1.9) Urine Leukocyte Esterase Negative (NEGATIVE) Urine RBC None /HPF (0-2/HPF) Urine WBC 1 /HPF (0-5/HPF) Urine Squamous Epithelial Cells Many /LPF (</=FEW) Urine Bacteria Negative /HPF (NONE-FEW) Urine Mucus Few /HPF (NONE-FEW) ED Course/Re-evaluation ED Course 37-year-old female who was treated surgically for an ectopic in June 2017 presents at 5 weeks and 1 day gestation with very mild left adnexal cramping. The patient states that Decision to Disposition Date: Jan 24, 2018 Decision to Disposition Time: 16:52 Depart Departure Latest Vital Signs Vital Signs Date Time Temp Pulse Resp B/P (MAP) Pulse Ox O2 Delivery O2 Flow Rate FiO2 01/24/18 16:05 82 98 01/24/18 16:00 108/82 (91) 01/24/18 14:42 99.1 16 Room Air Impression: Primary Impression: Pelvic pain during in first trimester, antepartum Condition: Improved Disposition: HOME OR SELF-CARE Referrals: ALHAJI ZAMBRANO KIM N MD Patient Instructions: First Trimester (ED) Additional Instructions: You need a repeat quantitative hCG and a repeat transvaginal ultrasound in 48 hours which is January 26. If you have any problems getting to see Dr. Leiva or Dr. Zambrano, return to the emergency department for repeat testing on Thursday. If you're pain worsens within the next 48 hours, return to the emergency department. ENA PRYOR MD Jan 24, 2018 14:29
[2018-01-24 14:59] LABS: PLATELET COUNT, AUTOMATED 283 K/uL (150-450)
[2018-01-24 16:30] VITALS: BP 132/91
--- NOTE | 2018-01-24 16:49 | RADIOLOGY IMAGING REPORT ---
FACILITY[place] [facility] [place]IENT NAME: Ceci Arevalo : 1980 MR: [id number] V: [id number] EXAM DATE: ORDERING PHYSICIAN: ENA PRYOR TECHNOLOGIST: Location: [facility] Patient: Ceci Arevalo : 1980 Visit/Account:[id number] Date of Sevice: 01/24/2018 ADDENDUM #1 This is a transvaginal exam. Report Dictated By: Junior Parham at 02/01/2018 2:12 PM Report E-Signed By: Junior Parham at 02/01/2018 2:12 PM ORIGINAL REPORT OB Ultrasound < 14 weeks Additional Pertinent history: Early . Mild pelvic pain. History of previous ectopic. COMPARISON STUDIES: 07/06/2017. FINDINGS: Gestational sac: intrauterine and unremarkable Yolk sac: Not visualized pole: Not visualized Estimated gestational age: 5 weeks and 2 days based on average gestational sac diameter of 0.6 for ce ntimeter. DEANGELO: 09/28/2018 by clinical and 09/24/2018 by ultrasound. Subchorionic hemorrhage: none Uterus: gravid, otherwise negative Maternal ovaries: Both ovaries are normal with normal blood flow. Right ovary does show 1.3 cm corpus luteum cyst. Adnexa: No adnexal mass lesion or focal abnormality. Free pelvic fluid: none IMPRESSION: 1. There is a gestational sac seen within the endometrium. No pole is identified. There is no d iscrete indication of extra uterine . This could be due to a very early . Suggest f ollow-up clinically and laboratory values to assess for early . Follow-up imaging as indicat ed. Report Dictated By: Junior Parham at 01/24/2018 4:42 PM Report E-Signed By: Junior Parham at 01/24/2018 4:46 PM WSN:[id number]
== END 2018-01-24 17:04 | disposition home or self-care (01) ==
LOC: ER 14:39
DX: O26.891 Other specified pregnancy related conditions, first trimester (principal); Z3A.01 Less than 8 weeks gestation of pregnancy
CPT/HCPCS: 36415; 76817; 81001; 82310; 82374; 82435; 82565; 82947; 84132; 84295; 84520; 84702; 85025; 99284

== ENCOUNTER → 2018-01-26 | Outpatient (CLI) | payer OTHER ==
[2017-07-07 08:18] VITALS: BMI 20.9
== END ==
LOC: LAB 14:54
PROVIDERS: ATTEND Student in an Organized Health Care Education/Training Program
DX: O26.891 Other specified pregnancy related conditions, first trimester (principal)
CPT/HCPCS: 36415; 84702

== ENCOUNTER → 2018-02-08 | Outpatient (CLI) | payer OTHER ==
[2017-07-07 08:18] VITALS: BMI 20.9
[~2018-02-08] MED LIST changes: +AMPH15TA3 PO; +PREN-127 PO
[2018-02-08 09:26] LABS: PLATELET COUNT, AUTOMATED 330 K/uL (150-450)
== END ==
LOC: LAB 08:01
PROVIDERS: ATTEND Student in an Organized Health Care Education/Training Program
DX: Z34.91 Encounter for supervision of normal pregnancy, unspecified, first trimester (principal)
CPT/HCPCS: 81001; 85025; 86592; 86703; 86762; 86850; 86900; 86901; 87088; 87340

== ENCOUNTER → 2018-02-25 | Outpatient (CLI) | payer OTHER ==
[2017-07-07 08:18] VITALS: BMI 20.9
== END ==
LOC: LAB 08:51
PROVIDERS: ATTEND Student in an Organized Health Care Education/Training Program
DX: Z11.9 Encounter for screening for infectious and parasitic diseases, unspecified (principal); Z11.3 Encounter for screening for infections with a predominantly sexual mode of transmission
CPT/HCPCS: 87491; 87591

== ENCOUNTER 2018-04-15 17:00 | Outpatient (RCR) | payer OTHER ==
[2017-07-07 08:18] VITALS: BMI 20.9
--- NOTE | 2018-04-15 12:39 | PT INITIAL EVALUATION ---
MEDICAL DIAGNOSIS: Low Back Pain, Perineal Pain TREATMENT DIAGNOSIS: Low Back Pain, Thoracic Pain DATE OF ONSET: 04/14/18 SUBJECTIVE: Ceci is a 37 year old female presenting to physical therapy following onset of lumbar pain that radiates out to both hips as well as upper back pain that goes out to her shoulders. Pt reports that the two pains don't come on together and alternate in severity. Currently the lumbar pain is rated at 5/10, but the thoracic pain is minimal. Additionally pt has anterior abdominal pain that spans from below the ribs down both sides of the abdominal muscles and acros the anterior groin. Pain comes and goes and is minimal currently. Pt is currently 16 weeks , , with her son born in 2013. Pain increases with coughing in the abdomen and prolonged sitting in all locations. Pt had no pain with her first child. 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 REHAB PROBLEM LIST: Increased Pain Decreased ROM Decreased Strength Impaired Transfers Decreased Endurance Decreased Function Decreased ADL's Decreased Mobility PREVIOUS MEDICAL HISTORY: See EMR OBJECTIVE: Posture: Posture unremarkable. ROM: Lumbar ROM: flexion: full with slight pain in back, ext: full, L SB: full, R SB: full with tightness in back, R rot: full, L rot: minimally restricted with tightness in back. Palpation: Pt is tender to palpation along the lumbar spine from L3 to the L gluteal fold and to the R superior popliteal fossa. No rectus abdominis noted. Sensation: Pt reports occasional tingling in fingers. Mobility: Lumbar Repeated Motion Screen: Flexion: pain sent to below knees B, ext: pain centralized to L PSIS and none in the R LE. Thoracic Repeated Motion: Ext: pain sent to B shoulders and down B triceps, Flex: pn centralized to within scapular medial borders B. ASSESSMENT: Ceci shows signs and symptoms consistent with lumbar and thoracic dysfunction likely secondary to increased joint laxity with . Physical therapy is indicated to improve pt function with ADL's as impaired by the above listed deficits. Short Term Goals In 3 weeks pt will centralize lumbar and thoracic pain to the back only for improved function with ADL's. In 6 weeks pt will decrease pain to below 3/10 with ADL's for improved function with ADL's. In 6 weeks pt will increase inner core strength for spinal and pelvic stability to 3/5 for improved function with ADL's. Patient's Goals Decrease back pain PLAN: Patient to be seen for Manual Therapy/STM/MET Strengthening/condition Ice/Heat Range of Motion Spinal Stabilization Stretching Neuromuscular Re-ed Closed Chain Program Posture/Body mechanics Gait Trg/Balance Trg Home Exercise Program Mech./Manual Traction Therapeutic Activities Pelvic Floor 2x/Week for 6 Weeks If you have any questions, comments, or concerns about this report or plan, please contact me at . Thank you, Fannie Kelly, PT, DPT, CLT MTDD
[~2018-04-15 17:00] MED LIST changes: +FLU60SYR36 IM
--- NOTE | 2018-04-22 09:32 | PT PLAN OF CARE ---
Physician: Arjun Zambrano DO Patient is being seen: 2-3x/Week Therapist: Fannie Kelly, PT, DPT, CLT Medical Diagnosis: Low Back Pain, Perineal Pain Treatment Diagnosis: Low Back Pain, Thoracic Pain Date of Onset: 04/14/18 Date of Initial Evaluation: 04/14/18 Date patient was last seen: 04/20/18 Number of treatments: 2 Number of cancellations/No shows: 1 INTERVENTIONS: Manual Therapy/STM/MET Strengthening/condition Ice/Heat Range of Motion Spinal Stabilization Stretching Neuromuscular Re-ed Closed Chain Program Posture/Body mechanics Gait Trg/Balance Trg Home Exercise Program Mech./Manual Traction Therapeutic Activities Pelvic Floor GOALS: In 3 weeks pt will centralize lumbar and thoracic pain to the back only for improved function with ADL's. In 6 weeks pt will decrease pain to below 3/10 with ADL's for improved function with ADL's. In 6 weeks pt will increase inner core strength for spinal and pelvic stability to 3/5 for improved function with ADL's. PATIENT'S GOAL: Decrease back pain Status of Patient's Goals: Discontinued Patient Compliance: Poor Prognosis: Good Reasons for discharge from therapy: Ceci is to discharge from physical therapy at this time secondary to pt preference. Upon discharge pt was started on HEP program to improve lumbar spine strength and stability, improve piriformis mobility, and strengthen pelvic floor and abdominal muscles. Pt remained to have abdominal pain following one treatment session, though lumbar, thoracic and hip pain was reduced. Pt is to continue with these exercises and seek further PT if symptoms worsen. ROM: Lumbar ROM: flexion: full with slight pain in back, ext: full, L SB: full, R SB: full with tightness in back, R rot: full, L rot: minimally restricted with tightness in back. Palpation: Pt is tender to palpation along the lumbar spine from L3 to the L gluteal fold and to the R superior popliteal fossa. No rectus abdominous noted. If you have any questions, please feel free to contact me at [phone]. Thank you, Fannie Kelly, PT, DPT, CLT [facility]
== END 2018-04-15 18:00 | disposition home or self-care (01) ==
LOC: PT 17:00
PROVIDERS: ATTEND Student in an Organized Health Care Education/Training Program
DX: M54.5 Low back pain (principal); R10.2 Pelvic and perineal pain; M54.6 Pain in thoracic spine; Z33.1 Pregnant state, incidental
CPT/HCPCS: 97162

== ENCOUNTER → 2018-05-10 | Outpatient (CLI) | payer OTHER ==
[2017-07-07 08:18] VITALS: BMI 20.9
--- NOTE | 2018-05-10 13:40 | RADIOLOGY IMAGING REPORT ---
FACILITY: [facility] PATIENT NAME: Ceci Arevalo : 1980 MR: [id number] V: [id number] EXAM DATE: ORDERING PHYSICIAN: ALHAJI VIVAS TECHNOLOGIST: Location: [facility] [place] Patient: Ceci Arevalo : 1980 Visit/Account:[id number] Date of Sevice: 05/10/2018 EXAMINATION: OB Ultrasound > 14 weeks with anatomic evaluation HISTORY: Screening COMPARISON: OB ultrasound 01/24/2018 FINDINGS: Intrauterine gestations: one presentation: Variable heart rate: 160 bpm Amniotic fluid index: 26 cm Largest amniotic fluid pocket 8 cm Placenta: Anterior. The placental cord insertion is central. The inferior placental margin is not martinez se to the endocervical os. Uterus: gravid, otherwise normal Maternal adnexa: Maternal adnexa we searched for, but not identified. Cervix: Long and closed Gestational Parameters: BPD: 4.8 cm; 20 week 5 day HC: 17.9 cm; 20 week 3 day AC: 15.7 cm; 21 week 0 day FL: 3.5 cm; 21 week 0 day Average ultrasound age (AUA): 20 week 6 day Estimated gestational age by LMP: 20 week 0 day Estimated date of delivery by LMP: 09/21/2018 Anatomic Survey: Intracranial structures, 4-chamber heart, stomach, kidneys, urinary bladder, spine, 3-vessel cord and cord insertion are unremarkable. face, cardiac outflow tracts, palate, orbits, nose and lips a re unremarkable. Thoracoabdominal situs is normal. Two upper and two lower extremities visualized. IMPRESSION: 1. Single, live intrauterine fetus with ultrasound age of 20 week 6 day, compatible with LMP dates of 20 week 0 day. 2. Unremarkable anatomic survey. Report Dictated By: Erin Davis MD at 05/10/2018 1:32 PM Report E-Signed By: Erin Davis MD at 05/10/2018 1:37 PM WSN:[id number]
== END ==
LOC: RAD 08:04
PROVIDERS: ATTEND Student in an Organized Health Care Education/Training Program
DX: Z02.9 Encounter for administrative examinations, unspecified (principal)

== ENCOUNTER → 2018-07-07 | Outpatient (CLI) | payer OTHER ==
[2017-07-07 08:18] VITALS: BMI 20.9
[~2018-07-07] MED LIST changes: +DIPH0.5D12 IM
[2018-07-07 09:28] LABS: PLATELET COUNT, AUTOMATED 262 K/uL (150-450)
== END ==
LOC: LAB 07:54
PROVIDERS: ATTEND Student in an Organized Health Care Education/Training Program
DX: O09.522 Supervision of elderly multigravida, second trimester (principal)
CPT/HCPCS: 36415; 82950; 85025

== ENCOUNTER → 2018-09-07 | Outpatient (CLI) | payer BC ==
[2017-07-07 08:18] VITALS: BMI 20.9
== END ==
LOC: LAB 13:48
PROVIDERS: ATTEND Student in an Organized Health Care Education/Training Program
DX: Z36.85 Encounter for antenatal screening for Streptococcus B (principal)
CPT/HCPCS: 87081

== ENCOUNTER 2018-09-12 14:23 | Inpatient (IN) | payer BC ==
[~2018-09-12] VITALS: Ht 160 cm; Wt 74.8 kg
[2018-09-12 15:00] VITALS: BP 129/86; Ht 160 cm; Wt 74.8 kg
[2018-09-12] MEDS ORDERED: FAMOTIDINE(*) 20MG/50ML PREMIX 50 ML IVPB PRN (16:03)
[2018-09-12] MEDS ORDERED: OXYTOCIN 30 UNIT/D5LR 500 ML 500 ML IV PRN ×3 (16:03→20:26)
[2018-09-12] MEDS ORDERED: ceFAZolin(*) 2GM/D5W 50ML 50 ML IVPB PRN (16:03)
[2018-09-12] MEDS ORDERED: ONDANSETRON 4 MG/2 ML VIAL IVP PRN (16:05)
[2018-09-12] MEDS ORDERED: LIDOCAINE/SOD BICARB 8.4% SYR SC PRN (16:05)
[2018-09-12] MEDS ORDERED: fentaNYL CITR 100 MCG/2 ML AMP IVP PRN (16:05)
[2018-09-12] MEDS ORDERED: METOCLOPRAMIDE 10 MG/2 ML SDV IVP PRN (16:05)
[2018-09-12] MEDS ORDERED: FLUSH 10 ML SYR IVP PRN (16:05)
[2018-09-12] MEDS ORDERED: LIDOCAINE 1% LOCAL 300 MG/30ML INJ PRN (16:05)
[2018-09-12] MEDS ORDERED: FENTANYL/ROPIVACAINE 100 ML BAG EPI PRN (16:10)
[2018-09-12] MEDS ORDERED: BUPIVACAINE 0.25% MPF INJ EPI PRN (16:10)
[2018-09-12] MEDS ORDERED: BUPIVACAINE 0.5% INJ 30ML VIAL EPI PRN (16:10)
[2018-09-12] MEDS ORDERED: LIDO/EPI 2% MPF 1:200,000 20ML EPI PRN (16:10)
[2018-09-12] MEDS ORDERED: fentaNYL CITR 100 MCG/2 ML AMP IT PRN (16:10)
[2018-09-12] MEDS ORDERED: LIDOCAINE/PF 2% 200MG/10ML AMP 200 MG/10 ML AMPUL EPI PRN (16:10)
[2018-09-12 17:09] LABS: PLATELET COUNT, AUTOMATED 157 K/uL (150-450)
--- NOTE | 2018-09-12 17:36 | History & Physical ---
History of Present Illness Age of Patient: 38 : 3 Para or TPAL: 1 EDC per LMP: Sep 27, 2018 Estimated Gestational Age: 37.6 Chief Complaint Pt reports contraction began at 2:30 this am. They have been irregular most of the day. She thinks they are about every 5 minutes a part, and she feels them in her lower pelvis. She is able to talk through them. +FM, denies LOF, or VB. Had one elevated BP in clinic on and no one here on admit. She denies PEDRO, vision changes, or RUQ pain. She and her have their son with them and are waiting for her parents to arrive ( 5 hours away) to come get him. They left at 4 pm so should be here about 8:30- 9. She had a forceps delivery with her first after an induction so would like Dr. Zambrano to be here for delivery. History Patient's Blood Type: B Positive Rubella Status: Immune Group B Strep Screen: Negative Obstetrical History: Forceps delivery with first baby and GHTN Allergies: Coded Allergies: celecoxib (Verified Allergy, Mild, HIVES, 01/24/18) Social History: Denies smoking, ETOH and illicit drugs, including marijuana Family History: Anxiety disorder MOTHER FH: bipolar disorder Siblings Siblings FH: cancer FATHER MOTHER FH: epilepsy MOTHER Siblings CHILD Siblings Med Rec Home Meds Reported Medications Amphet Asp/Amphet/D-Amphet (ADDERALL 15 MG TABLET) 15 Mg Tablet, 15 MG PO 02/08/18 Amphet Asp/Amphet/D-Amphet (ADDERALL 10 MG TABLET) 10 Mg Tablet, 10 MG PO DAILY 02/08/18 Vits W-Ca,Fe,Fa(<1MG) ( VITAMINS) 1 Each Tablet, 1 EACH PO DAILY, TAB 02/08/18 Review of Systems Constitutional: No Fever Neurological: No Dizziness Eyes: No Vision Change, No Loss of Vision Cardiovascular: No Chest Pain Gastrointestinal: No Nausea, No Vomiting, No Diarrhea, No Constipation Genitourinary: No Dysuria Musculoskeletal: Pain (mild contraction pain) Psychiatric: Anxiety; No Depression Exam General Exam Vital Signs Vital Signs Date Time Temp Pulse Resp B/P (MAP) Pulse Ox O2 Delivery O2 Flow Rate FiO2 09/12/18 15:00 97.8 93 18 129/86 (100) 95 Room Air General Apperance: Alert/Awake/No Acute Distress Neuro: No Gross deficits ENT: Normal Respiratory: No Respiratory Distress Abdomen: Gravid - Non-Tender, RUQ Non-Tender Integumentary: Skin Intact without Lesions or Rash Psychological: Alert & Oriented X3, Appropriate Mood & Affect Cervical Dialation: 4 Cervical Effacement (%): 90 Cervical Consistency: Soft Cervical Position: Mid Presentation: Vertex Uterine Contractions(Q min): 5 Uterine Contraction Strength: Mild UC Resting Tone: Soft Fetus Feeling Movement?: Yes Estimated Weight(grams): 3400 Heart Tones: 145 Heart Tone Variabilty: Moderate FHT Accelerations: 15X15 FHT Decelerations: None FHT Category: I Medical Decision Making Data Points Result Diagram: 09/12/18165509/12/181655 Assessment and Plan Hospital Day: 1 CARPENTER PROTOTYPE Assessment: Stable CARPENTER PROTOTYPE Plan: Routine Labor Care Problems: (1) Uterine contractions Onset Date: ~ 09/12/2018 Status: Acute Assessment & Plan: AF is a 38 y.o. at 37w6d wks with an Estimated Date of Delivery: 09/27/18 dated by LMP and first trimester US Labor state: Early Labor, Admit to L&D, start IV, draw type and screen, pre Eclampsia labs as well as P:C ratio, Discussed AROM and Pitocin augmentation, R/B/A/ All questions answered. Pt reductant for Pitocin, but agreeable to AROM to progress labor well-being: Category I FHT: intermittent monitoring for low risk at this point Maternal well-being: mild-range BP, afebrile, membranes presumed intact. Monitor BP closely for severe range, Pre Eclampsia labs WNL, P:C .22, monitor for developing Pre eclampsia symptoms PNL: GBS NEG, Type/Rh B+, rubella immune Pain Management: Plans for an epidural, but does not want to get it too early so she is able to walk around Feed: Breast PPBCM: c/b: * AMA * GHTN Dx on admit: No Preeclampsia at this time * Hx of forceps delivery Anticipate NSVB, re-evaluate in 2-3 hours or PRN (2) Gestational hypertension Onset Date: ~ 09/12/2018 Status: Acute Assessment & Plan: Admit pt to L&D, send Preeclampsia labs, monitor symptoms and BP. Mild range at this point so no Mag or BP meds needed. Will consult Dr. Zambrano if these interventions are needed. Problem Qualifiers (1) Gestational hypertension: Trimester: third trimester Qualified Codes: O13.3 - Gestational [- induced] hypertension without significant proteinuria, third trimester REINA FOREMAN CNM Sep 12, 2018 17:36
[2018-09-12] MEDS: LR(*) 1000 ML BAG 1,000 ML IV SCH ×2 (18:28→20:13)
[2018-09-12] MEDS ORDERED: ePHEDrine 25 MG/5 ML DISP.SYR IVP ONE (18:30)
--- NOTE | 2018-09-12 20:05 | Labor Progress Note ---
Labor Subjective Progress Notes Subjective Pt is resting in bed with epidural now and does not have any pain. +FM, no VB. Agreeable to AROM to help with labor progression as no contractions since epidural placement. Their son is with family now. She denies PEDRO, vision changes and RUQ pain. is at the bedside resting on the couch. Feeling Movement?: Yes Vaginal Discharge/Fluid: Clear Fluid, Small Amount Labor Pain: Comfortable Neurological: No Headache Eyes: No Visual Disturbances Labor Objective Vital Signs Vital Signs Date Time Temp Pulse Resp B/P (MAP) Pulse Ox O2 Delivery O2 Flow Rate FiO2 09/12/18 15:00 97.8 93 18 129/86 (100) 95 Room Air Vaginal Discharge/Fluid?: Clear Fluid, Small Amount Cervical Dialation: 8 Cervical Effacement (%): 90 Cervical Consistency: Soft Cervical Position: Anterior Station: 0 Presentation: Vertex Uterine Contraction Strength: Moderate UC Resting Tone: Soft Fetus Estimated Weight(grams): 3300 Heart Tones: 145 Heart Tone Variabilty: Moderate FHT Accelerations: 15X15 FHT Decelerations: Variable FHT Category: II General Exam General Appearance: Alert/Awake/No Acute Distress ENT: Normal Cardiovascular: Normal Rhythm & Peripheral Pulses Abdomen: Gravid - Non-Tender, RUQ Non-Tender : Normal Psychological: Alert & Oriented X3, Appropriate Mood & Affect Other Result Diagram: 09/12/18 1656 09/12/18 1656 Assessment and Plan Hospital Day: 1 EXECUTIVE SALES ASSISTANT Assessment: Stable EXECUTIVE SALES ASSISTANT Plan: Routine Labor Care Problems: (1) Uterine contractions Onset Date: ~ 09/12/2018 Status: Acute Assessment & Plan: AF is a 38 y.o. at 37w6d wks with an Estimated Date of Delivery: 09/27/18 dated by LMP and first trimester US Labor state: Active labor and approaching transition. Good cervical change since admit, but after epidural contractions decreased significantly. Pt agreeable to AROM, so AROM for small amount of clear fluid. Will plan to start Pitocin if co ntractions do not increase in frequency. well-being: Category II FHT: intermittent variables, Continuous monitoring for epidural Maternal well-being: mild-range BP, afebrile. Monitor BP closely for severe r cathy, Pre Eclampsia labs WNL, P:C .22, monitor for developing Preeclampsia symptoms. PNL: GBS NEG, Type/Rh B+, rubella immune Pain Management: Comfortable with epidural Feed: Breast c/b: * AMA * GHTN Dx on admit: No Preeclampsia at this time * Hx of forceps delivery Anticipate NSVB, re-evaluate in 2-3 hours or PRN (2) Gestational hypertension Onset Date: ~ 09/12/2018 Status: Acute Assessment & Plan: Monitor for preeclampsia symptoms and severe range BP. Mild range at this point so no Mag or BP meds needed. Will consult Dr. Zambrano if these interventions are needed. Problem Qualifiers (1) Gestational hypertension: Trimester: third trimester Qualified Codes: O13.3 - Gestational [- induced] hypertension without significant proteinuria, third trimester REINA FOREMAN CNM Sep 12, 2018 20:05
--- NOTE | 2018-09-12 20:08 | Anesthesia OB Pre-Anes Eval ---
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) Previous Anesthesia: epidural Hx Anesthesia Reactions: No Hx Family Anesthesia Reaction: No Home Meds Reported Medications Amphet Asp/Amphet/D-Amphet (ADDERALL 10 MG TABLET) 10 Mg Tablet, 10 MG PO DAILY 02/08/18 Vits W-Ca,Fe,Fa(<1MG) ( VITAMINS) 1 Each Tablet, 1 EACH PO DAILY, TAB 02/08/18 Discontinued Reported Medications Amphet Asp/Amphet/D-Amphet (ADDERALL 15 MG TABLET) 15 Mg Tablet, 15 MG PO 02/08/18 Allergies: Coded Allergies: celecoxib (Verified Allergy, Mild, HIVES, 01/24/18) Anesthesia OB ROS Neurological: No migraines/headaches, No seizures, No neuropathy, No other ENT: Denies Tooth caps, Denies Loose teeth, Denies Chipped teeth, Denies Dentures, Denies Bridges, Denies Retainers, Denies Veneers, Denies Implants, Denies Tongue ring, Denies Other Pulmonary: asthma (as a child exercise induced) Airway Class: l Cardiovascular ROS: No edema, No arrhythmia, No other GI ROS: clear liquids Last Solids Date: Sep 12, 2018 Last Solids Time: 17:30 ROS: No Herpes, No STD(s), No Liver Disease, No Renal Disease, No Other Endocrine ROS: No diabetes, No gestational diabetes, No thyroid disorder, No other Musculoskeletal ROS: No low back pain, No low back injury, No scoliosis, No other ASA Classification: 2 Assessment and Plan Anesthesia Plan: NEVA ELLIS CRNA Sep 12, 2018 20:08
--- NOTE | 2018-09-12 20:12 | Procedure Note ---
Anesthetic Placement Note Anesthesia Plan: LEB Permit for Anesthesia Signed: Yes Anesthesia Technique: Patient Sitting Anesthesia Prep: Betadine Interspace: L 3-4 Local Anesthetic: 1% Lidocaine Amount Local - cc's: 2 Anesthesia Needle: 17g Touhy/Schliff Anesthesia Attempts: 1 Loss of Resistance: Normal Saline Depth of BENTON (cm): 4.5 Epidural Needle Placement: No CSF, No Blood, No Parasthesia Cerebral Spinal Fluid: No Catheter Insertion (cm): 11 Catheter Type: Gutiérrez - Spring Wound Epidural Dressing: Tegaderm, Tape Anesthesia Tray: Lot Number ([id number]), Expiration Date (02/20/2020) Anesthesia Medications: Epidural Test Dose: 1.5 Lido/Epi (1:200,000), Dose - mL (4cc) Epidural Loading Dose: 0.2% Ropivicaine, With Fentanyl 2mcg/ml, Dose - ml (3), Time (1909) Epidural Infusion: 0.2% Ropivicaine, With Fentanyl 2mcg/ml, Start Time: (1909) Epidural Pump Setting: Bolus Dose - mL (5), Lockout - Minutes (20), Maintenance Rate - mL/hr (8), Maximum per Hour - mL (10) Complications: None NEVA KWOK CRNA Sep 12, 2018 20:12
[2018-09-12] MEDS ORDERED: INFLUENZA VIRUS VAC 0.5ML SYR IM ONLY ONE (22:10)
[2018-09-12] MEDS ORDERED: ACETAMINOPHEN 325 MG TAB PO PRN (22:10)
[2018-09-12] MEDS ORDERED: MEASLES,MUMP,RUBELLA VAC 0.5ML SC ONE (22:10)
[2018-09-12] MEDS ORDERED: HYDROCORTISONE 2.5% CR 30GM TB PR PRN (22:10)
[2018-09-12] MEDS ORDERED: DIPHTH/TETANUS/ACEL. PERTUSSIS IM ONE (22:10)
[2018-09-12] MEDS ORDERED: APAP/HYDROCODONE 325/5 TAB PO PRN (22:10)
[2018-09-12] MEDS ORDERED: BENZOCAINE 20% 60 ML BTL TP PRN (22:10)
[2018-09-12] MEDS ORDERED: LANOLIN OINT 7 GM TUBE TP PRN (22:10)
[2018-09-12] MEDS ORDERED: GLYCERIN/WITCH HAZEL LEAF 1 PK TOP PRN (22:10)
[2018-09-12] MEDS ORDERED: MAGNESIUM HYDROXIDE* 30ML UDCP PO PRN (22:10)
--- NOTE | 2018-09-12 22:14 | OB Delivery Note ---
Delivery Note Vaginal Delivery Type: Spont. Vaginal Delivery Delivery Date: Sep 12, 2018 Delivery Time: 21:46 Estimated Gestational Age(wks): 37.6 Length of Labor Stage I (hrs): 5 Length of Labor Stage II (hrs): 0.5 Labor Stage III (minutes): 5 Delivery Anesthesia: Epidural Infant Sex: Female Weight (gms): 2820 (6#3oz) Apgars: 1 Minute (8), 5 Minute (9 ) Repair Needed: 1st Degree Estimated Blood Loss: 300 Delivery Complications: Nuchal Cord Hand Stripper in Attendence: ALHAJI Glynn DO Sep 12, 2018 22:14
[2018-09-12] MEDS: IBUPROFEN 800 MG TAB PO SCH (22:57)
[2018-09-12 23:18] VITALS: BP 114/67
[2018-09-12 23:48] VITALS: BP 135/78
[2018-09-13 04:22] VITALS: BP 157/79
[2018-09-13 04:29] VITALS: BP 151/82
--- NOTE | 2018-09-13 06:10 | DELIVERY NOTE ---
DELIVERY DATE: September 12, 2018 SURGEON: Arjun Zambrano DO ANESTHESIA: Epidural. PREOPERATIVE DIAGNOSES 1. A 38-year-old 3, para 1-0-1-1 at 37-6/7 weeks' gestation. 2. Labor. 3. Gestational hypertension. POSTOPERATIVE DIAGNOSES 1. A 38-year-old 3, para 1-0-1-1 at 37-6/7 weeks' gestation. 2. Labor. 3. Gestational hypertension. 4. Delivered. PROCEDURE Spontaneous vaginal delivery with repair of first-degree midline laceration. FINDINGS Live-born female infant at 2146 of 09/12/2018 with Apgars of 8 and 9, weighing 2820 g, 6 pounds 3 ounces, three-vessel cord, intact placenta, over a first- degree midline laceration. ESTIMATED BLOOD LOSS 300 mL. PATHOLOGY None. COMPLICATIONS None known. CONDITION Stable x2. Mother and infant to remain in LDRP. COUNTS Correct for all needles, laps, sponges and instruments. LABOR SUMMARY Patient is a 38-year-old 3, para 1, who presented to Labor and Delivery with chief complaint of painful contractions. She was noted to be 4 cm upon initial check. She was checked approximately two hours later and was noted to be 7 cm. She also was noted to have elevated blood pressures, underwent laboratory evaluation to rule out preeclampsia, and was noted to have normal labs, so she was given a diagnosis of gestational hypertension. Patient continued to progress. She did make it to 8 cm and underwent amniotomy with clear amniotic fluid. Patient requested an epidural shortly thereafter. She was started on oxytocin to increase frequency of contractions. The patient quickly progressed to complete and 0 station. After a few trial pushes, the delivery team was called and assembled. DELIVERY SUMMARY The patient was placed in the dorsal lithotomy position and prepped and draped in the usual sterile manner. Upon maternal pushing, the infant's head delivered in a controlled manner, followed by the anterior shoulders with gentle downward motion and the posterior shoulders with gentle upward motion. The remainder of the infant's body delivered spontaneously. Mouth and nose were bulb-suctioned. The cord was clamped x2 and cut by the infant's father. The was placed on maternal abdomen, where it was attended to by the nursing staff. Cord blood gas was obtained. The placenta delivered spontaneously with gentle cord traction. Oxytocin was infused to help with the uterine tone. The uterus was massaged and deemed firm. Next, upon inspection of the perineum, vagina, cervix, and labia, it was noted that there was a first-degree midline laceration. This was repaired with 3-0 Vicryl in a running manner. With laceration repaired, it was hemostatic. The patient was then cleaned, the labor bed was reassembled, and the mother and were allowed to continue to crabtree. EBONY
[2018-09-13 07:15] VITALS: BP 141/83
[2018-09-13] MEDS: IBUPROFEN 800 MG TAB PO SCH ×2 (09:06→17:03)
[2018-09-13] MEDS: DOCUSATE CALCIUM 240 MG CAP PO SCH ×2 (09:07→23:10)
[2018-09-13 16:10] VITALS: BP 150/89
--- NOTE | 2018-09-13 16:28 | OB/GYN Progress Note ---
OB Subjective Progress Notes Subjective Patient is day #1 status post spontaneous vaginal delivery with for screening midline laceration. Patient reports bleeding is improved since overnight. Patient reports pain is controlled with ibuprofen alone. Patient denies any fevers chills. Ambulatory and voiding without difficulty. Breast- feeding without any difficulty. GI: NEG Nausea, NEG Vomiting, NEG Flatus, NEG Bowel Movement : Voiding Well Pain: Mild, Tolerating PO Pain Meds Eyes: No Visual Disturbances OB Objective Physical Exam Vital Signs Date Time Temp Pulse Resp B/P (MAP) Pulse Ox O2 Delivery O2 Flow Rate FiO2 09/13/18 07:15 97.6 61 14 141/83 (102) 09/12/18 23:48 95 09/12/18 23:18 Room Air Intake and Output 09/13/18 07:00 Intake Total 1900 ml Output Total 1125 ml Balance 775 ml IV Total 1900 ml Output Urine Total 1125 ml # Voids 1 General Appearance: Alert/Awake/No Acute Distress Neurological: No Gross deficits ENT: Normal Cardiovascular: Normal Rhythm & Peripheral Pulses Respiratory: No Respiratory Distress Abdomen: Fundus Firm : Normal Integumentary: Skin Intact without Lesions or Rash Psychological: Alert & Oriented X3, Appropriate Mood & Affect Result Diagram: 09/13/18 0615 09/12/18 1656 Assessment and Plan ASSISTANCE COORDINATOR Assessment: Stable ASSISTANCE COORDINATOR Plan: Routine Post- Care, Discharge Home Tomorrow Problems: (1) Uterine contractions Onset Date: ~ 09/12/2018 Status: Acute (2) Gestational hypertension Onset Date: ~ 09/12/2018 Status: Acute Assessment & Plan: Patient day #1 from vaginal delivery with prescription and laceration repair. Patient desires to remain overnight again. Will monitor for breast-feeding and pain control. Plan discharge on 09/14/2018. Problem Qualifiers (1) Gestational hypertension: Trimester: third trimester Qualified Codes: O13.3 - Gestational [- induced] hypertension without significant proteinuria, third trimester ALHAJI VIVAS DO Sep 13, 2018 16:28
[2018-09-13 19:40] VITALS: BP 145/81
[2018-09-13 23:12] VITALS: BP 137/65
[2018-09-14] MEDS: IBUPROFEN 800 MG TAB PO SCH ×2 (01:18→09:57)
[2018-09-14 03:59] VITALS: BP 141/77
[2018-09-14 07:20] VITALS: BP 146/90
[2018-09-14 09:45] VITALS: BP 147/88
[2018-09-14] MEDS: DOCUSATE CALCIUM 240 MG CAP PO SCH (09:57)
--- NOTE | 2018-09-14 11:12 | OB/GYN Discharge Summary ---
Discharge Summary Reason for Hosp/Final Diag: (1) Uterine contractions Onset Date: ~ 09/12/2018 Status: Resolved (2) Gestational hypertension Onset Date: ~ 09/12/2018 Status: Resolved (3) (normal spontaneous vaginal delivery) Status: Resolved (4) First degree perineal laceration during delivery, delivered Status: Acute Hospital Course & Plan: Reviewed using the shen bottle when urinating and patting dry rather than wiping. Encouraged use of Dermoplast and sitz bathes if needed. Continue to take Ibuprofen for pain as needed. Reviewed warning signs of infection. (5) care following vaginal delivery Onset Date: ~ 09/12/2018 Status: Acute Hospital Course & Plan: Patient is a 38-year-old 3 now para 2, who presented to Labor and Delivery with chief complaint of painful contractions om 09/12/18. She was noted to be 4 cm upon initial check. She was checked approximately two hours later and was noted to be 7 cm. She also was noted to have elevated blood pressures, underwent laboratory evaluation to rule out preeclampsia, and was noted to have normal labs, so she was given a diagnosis of gestational hypertension. Patient continued to progress. She did make it to 8 cm and underwent amniotomy with clear amniotic fluid. Patient requested an epidural shortly thereafter. She was started on oxytocin to increase frequency of contractions. The patient quickly progressed to complete and 0 station. After a few trial pushes, the delivery team was called and assembled. Pt is now PP day #2 and is doing very well. She feels ready to go home. is going well with a good latch and +colostrum. She is voiding and passing gas. Denies PEDRO, vision changes and RUQ pain. She continues to have some mild range BP, but nothing severe. She us unsure about BC, but is considering the Mirena IUD at 6 weeks. She has minimal perineal pain and is taking ibuprofen with good effect. She denies calf pain or tenderness. Reviewed discharge instructions with patient; signs and symptoms of mastitis or endometritis DVT,UTI, and preeclampsia. Patient and verbalize understanding and had no questions Plan for patient to discharge home today and follow up in [address] Zambrano. Debbie Vital Signs Vital Signs Date Time Temp Pulse Resp B/P (MAP) Pulse Ox O2 Delivery O2 Flow Rate FiO2 09/14/18 09:45 98.5 76 18 147/88 (107) 09/14/18 03:59 95 Room Air Weight (Pounds): 165 Result Diagram: 09/13/18 0615 09/12/18 1656 Condition: Improved Discharge: Home Home Meds Reported Medications Amphet Asp/Amphet/D-Amphet (ADDERALL 10 MG TABLET) 10 Mg Tablet, 10 MG PO DAILY 02/08/18 Vits W-Ca,Fe,Fa(<1MG) ( VITAMINS) 1 Each Tablet, 1 EACH PO DAILY, TAB 02/08/18 Discontinued Reported Medications Amphet Asp/Amphet/D-Amphet (ADDERALL 15 MG TABLET) 15 Mg Tablet, 15 MG PO 02/08/18 Follow up Referrals: ORAL COMMUNICATION INSTRUCTOR @ [facility] with ALHAJI ZAMBRANO DO Discharge Diet: As Tolerates, Resume Prior Admit Diet, Increase Fluid Intake Discharge Activity: As Tolerates, Pelvic Rest Problem Qualifiers (1) Gestational hypertension: Trimester: third trimester Qualified Codes: O13.3 - Gestational [- induced] hypertension without significant proteinuria, third trimester REINA FOREMAN Sep 14, 2018 11:12
[2018-09-14] MEDS ORDERED: IBUP800T37 PO (12:02)
== END 2018-09-14 11:55 | disposition home or self-care (01) | DRG 807 ==
LOC: OB 14:23
PROVIDERS: ADMIT Obstetrics & Gynecology; ATTEND Obstetrics & Gynecology
PROC: 10E0XZZ Delivery of Products of Conception, External Approach (ICD-10-PCS; principal; 2018-09-12)
PROC: 10907ZC Drainage of Amniotic Fluid, Therapeutic from Products of Conception, Via Natural or Artificial Opening (ICD-10-PCS; 2018-09-12)
PROC: 0HQ9XZZ Repair Perineum Skin, External Approach (ICD-10-PCS; 2018-09-12)
DX: O13.4 Gestational [pregnancy-induced] hypertension without significant proteinuria, complicating childbirth (principal); Z37.0 Single live birth; O69.81X0 Labor and delivery complicated by cord around neck, without compression, not applicable or unspecified; O70.0 First degree perineal laceration during delivery; Z3A.37 37 weeks gestation of pregnancy
CPT/HCPCS: 36415; 82040; 82247; 82310; 82374; 82435; 82565; 82570; 82947; 84075; 84132; 84155; 84156; 84295; 84450; 84460; 84520; 85025; 85027; 86850; 86900; 86901; J2405; J2590; J7120